=== PATIENT | female | born 1970 | race Caucasian/White ===

== ENCOUNTER → 2018-03-18 | Outpatient (CLI) | payer BC ==
[~2018-03-18] MED LIST: ACE3 PO; CYCL-332 PO; IBU800 PO; KET10 PO; LOR5/325 PO
--- NOTE | 2018-03-18 15:19 | RADIOLOGY IMAGING REPORT ---
FACILITY: [facility] PATIENT NAME: KRZYSZTOF MEYERS : [id number] MR: [id number] V: [id number] EXAM DATE: ORDERING PHYSICIAN: MIMI SPENCER TECHNOLOGIST: Agnes Dean PROCEDURE:BILATERAL DIGITAL SCREENING MAMMOGRAM WITH CAD ASSISTED INTERPRETATION & 3D TOMOSYNTHESIS COMPARISON:Prior mammograms 02/09/2016, 06/10/2014, 02/27/2013. INDICATIONS:SCREENING FINDINGS: The breast tissue is heterogeneously dense. There is no dominant mass, suspicious cluster of microcalcifications or persistent areas of architectural distortion. DIAGNOSTIC CATEGORY 1--NEGATIVE. RECOMMENDATIONS: ROUTINE MAMMOGRAM AND CLINICAL EVALUATION IN 1 YR. IMPRESSION: BIRADS 1: Negative. Dictated by: Srinivas Osborn M.D. on 03/18/2018 at 15:07 Transcribed by: ANNA on 03/18/2018 at 15:17 Approved by: Srinivas Osborn M.D. on 03/18/2018 at 15:17 [facility]
== END ==
LOC: MAMO 02:50
PROVIDERS: ATTEND Obstetrics & Gynecology
DX: Z12.31 Encounter for screening mammogram for malignant neoplasm of breast (principal); Z80.3 Family history of malignant neoplasm of breast
CPT/HCPCS: 77063; 77067